=== PATIENT | female | born 1975 | race Caucasian/White ===

== ENCOUNTER 2018-11-13 13:46 | Emergency (ER) | payer MEDICAID ==
[~2018-11-13] VITALS: Ht 149.9 cm; Wt 44.5 kg
[2018-11-13 14:02] VITALS: Ht 149.9 cm; Wt 44.5 kg
[2018-11-13 14:26] LABS: BASOPHILS 0 % (0-2); EOSINOPHILS 0 % (0-7); HEMATOCRIT 36.1 % (36.0-48.0); HEMOGLOBIN 12.3 g/dL (12-16); IMMATURE GRANULOCYTES 0.3 % (0-5); LYMPHOCYTES 2.9 % (15-50); MCH 27.2 pg (26.0-34.0); MCHC 34.1 g/dL (31.0-37.0); MCV 79.9 fL (80.0-100.0); MEAN PLATELET VOLUME 9.3 fL (7.4-10.4); MONOCYTES 3.1 % (2-11); NEUTROPHILS 93.7 % (40-80); PLATELET COUNT 254 10x3/uL (130-400); RBC 4.52 10x6/uL (4.00-5.40); RDW 15.5 % (11.5-14.5); WBC 10.5 10x3/uL (4.8-10.8)
[2018-11-13 14:27] LABS: APPEARANCE CLEAR (CLEAR); BILIRUBIN NEGATIVE (NEGATIVE); COLOR STRAW (YELLOW); GLUCOSE NEGATIVE (NEGATIVE); KETONE LARGE mg/dL (NEGATIVE); NITRITE NEGATIVE (NEGATIVE); PROTEIN NEGATIVE (NEGATIVE); UROBILINOGEN NORMAL (NORMAL)
[2018-11-13 14:51] LABS: ALBUMIN 3.5 g/dL (3.4-5.0); ALKALINE PHOSPHATASE 63 U/L (46-116); ALT (SGPT) 13 U/L (10-68); AMYLASE - SERUM 19 U/L (25-115); BILIRUBIN - TOTAL 0.34 mg/dL (0.2-1.3); CALC OSMOLALITY 273 mosm/kg (275-300); CARBON DIOXIDE 23.1 mmol/L (21.0-32.0); CHLORIDE - SERUM 102 mmol/L (98-107); CREATININE - SERUM 0.7 mg/dL (0.6-1.3); GLUCOSE 103 mg/dL (74-106); LIPASE 83 U/L (73-393); POTASSIUM - SERUM 3.6 mmol/L (3.5-5.1); PROTEIN - SERUM 7.1 g/dL (6.4-8.2); SODIUM 136 mmol/L (136-145); UREA NITROGEN 17 mg/dL (7-18); eGFR NON AFRICAN AMERICAN > 90 mL/min (90-120)
[2018-11-13 14:52] LABS: TROPONIN-I < 0.017 ng/mL (0.000-0.060)
[2018-11-13 14:53] LABS: HCG SERUM NEGATIVE (NEGATIVE)
[2018-11-13] MEDS ORDERED: CIPRO500 MG PO (18:08)
[2018-11-13] MEDS ORDERED: PHENERGAN25 M1 PO (18:08)
[2018-11-13] MEDS ORDERED: FLAGYL500 MG PO (18:08)
[2018-11-13 19:11] VITALS: BP 150/90
== END 2018-11-13 18:41 | disposition home or self-care (01) ==
LOC: D.ER 13:46
PROVIDERS: Family Medicine
DX: K52.9 Noninfective gastroenteritis and colitis, unspecified (principal)